=== PATIENT | female | born 1945 | race African-American/Black ===

== ENCOUNTER 2017-07-13 20:33 | Emergency (ER) | payer MEDICARE, MEDICAID ==
[~2017-07-13] VITALS: Ht 154.9 cm; Wt 63.0 kg
[~2017-07-13 20:33] MED LIST: CLOP75TA33 PO; DULO30CA2 PO; ESOM40CA PO; METO25TA6 PO; NIFE30TA8 PO; TRAM50TA3 PO
[2017-07-13] MEDS ORDERED: IBUPROFEN 600MG TABLET PO STA (22:09)
[2017-07-13] MEDS ORDERED: ACETAMINOPHEN 325MG TABLET PO STA (22:09)
[2017-07-13 22:47] LABS: CLARITY URINE CLEAR (CLEAR); COLOR URINE YELLOW (YELLOW); GLUCOSE URINE NEGATIVE (NEGATIVE); KETONES URINE TRACE (NEGATIVE); LEUKOCYTE ESTERASE URINE 2+ (NEGATIVE); NITRITE URINE NEGATIVE (NEGATIVE); OCCULT BLOOD URINE NEGATIVE (NEGATIVE); PROTEIN URINE NEGATIVE (NEGATIVE); SPECIFIC GRAVITY URINE 1.021 (1.005-1.030); UROBILINOGEN URINE 0.2 E.U./dL (0.2-1.0)
[2017-07-13 23:13] LABS: CARBON DIOXIDE 29 mEq/L (21-32); CHLORIDE 108 mEq/L (98-107)
[2017-07-13] MEDS ORDERED: KETOROLAC 15MG/ML VIAL IV ONE (23:15)
[2017-07-13 23:17] LABS: PROTHROMBIN TIME 9.9 sec (9.4-11.6)
[2017-07-13] MEDS ORDERED: POTASSIUM CHLORIDE 20MEQ TABLET SR PO SCH (23:45)
[2017-07-13] MEDS ORDERED: NITROFURANTOIN 100MG M/M CAPSULE PO ONE (23:45)
[2017-07-13 23:56] LABS: EOSINOPHILS % 2.7 % (0.0-5.0); HEMATOCRIT. 33.7 % (36.0-48.0); HEMOGLOBIN. 11.2 g/dL (12.0-16.0); LYMPHOCYTES % 34.4 % (20.0-50.0); MEAN CORPUSCULAR HEMOGLOBIN 29.1 pg (28.0-32.0); MEAN CORPUSCULAR VOLUME 87.4 fL (81.0-99.0); MONOCYTES % 8.3 % (2.0-8.0); NEUTROPHILS % 52.6 % (40.0-76.0); RED BLOOD CELL COUNT 3.85 mill/uL (4.2-5.4); RED CELL DISTRIBUTION WIDTH 15.3 % (11.6-14.6)
[2017-07-14 00:20] LABS: PLATELET 211 x1000/uL (130-400)
[2017-07-14 00:21] LABS: MEAN PLATELET VOLUME 9.4 fl (7.4-10.4)
[2017-07-14 01:17] VITALS: BP 161/83
[2017-07-14] MEDS ORDERED: ONDANSETRON 4MG ODT PO ONE (01:30)
== END 2017-07-14 01:42 | disposition home or self-care (01) ==
LOC: ER 21:04
DX: N20.0 Calculus of kidney (principal); K59.00 Constipation, unspecified; R51 Headache; I11.9 Hypertensive heart disease without heart failure; F17.210 Nicotine dependence, cigarettes, uncomplicated; Z86.73 Personal history of transient ischemic attack (TIA), and cerebral infarction without residual deficits; Z88.0 Allergy status to penicillin; Z88.6 Allergy status to analgesic agent; Z90.49 Acquired absence of other specified parts of digestive tract; Z85.9 Personal history of malignant neoplasm, unspecified
CPT/HCPCS: 36415; 74176; 80053; 81001; 83605; 83690; 85025; 85610; 93005; 96374; 99285; J1885; Q0162